=== PATIENT | male | born 1955 | race American Indian/Alaskan Native ===

== ENCOUNTER 2020-02-03 09:16 | Outpatient (CLI) | payer BC ==
[2020-02-03] MEDS ORDERED: LIDOCAINE (4%) 40 MG/ML TOPICAL SOLN 50 ML BOTTLE TP ONE (10:00)
[2020-02-03] MEDS ORDERED: SILVER NITRATE APPLICATOR 1 EA TP SCH (11:00)
== END 2020-02-03 09:17 | disposition home or self-care (01) ==
LOC: WOUND 09:16
PROVIDERS: ATTEND Surgery
DX: L89.023 Pressure ulcer of left elbow, stage 3 (principal); S01.301A Unspecified open wound of right ear, initial encounter; S01.00XA Unspecified open wound of scalp, initial encounter; S21.201A Unspecified open wound of right back wall of thorax without penetration into thoracic cavity, initial encounter; C92.00 Acute myeloblastic leukemia, not having achieved remission; M10.9 Gout, unspecified; N18.6 End stage renal disease; Z99.2 Dependence on renal dialysis; Z87.891 Personal history of nicotine dependence; X58.XXXA Exposure to other specified factors, initial encounter; Y93.89 Activity, other specified; Y92.89 Other specified places as the place of occurrence of the external cause; Y99.8 Other external cause status
CPT/HCPCS: 11042; 11045; G0463; 99204